=== PATIENT | male | born 1965 | race Caucasian/White ===

== ENCOUNTER → 2023-04-26 12:52 | Outpatient (BNVA) | payer MEDICAID, SELFPAY | PROVIDERS: PCP Registered Nurse; Referring Provider Registered Nurse; Visit Provider Orthopaedic Surgery | DX: M25.511 Pain in right shoulder (principal) | CPT/HCPCS: 73030 ==

== ENCOUNTER → 2023-06-01 10:43 | Outpatient (BNVA) | payer MEDICAID, SELFPAY | PROVIDERS: PCP Registered Nurse; Visit Provider Registered Nurse | DX: R55 Syncope and collapse (principal) | CPT/HCPCS: 80053; 82306; 83036; 85025 ==

== ENCOUNTER 2023-08-03 20:00 | Outpatient (CLI) | payer MEDICAID, SELFPAY | END 2023-08-03 20:01 | disposition home or self-care (01) | LOC: SLEEP 08-04 04:13 | PROVIDERS: PCP Registered Nurse; Visit Provider Registered Nurse | DX: G47.33 Obstructive sleep apnea (adult) (pediatric) (principal); F17.200 Nicotine dependence, unspecified, uncomplicated | CPT/HCPCS: 95810 ==

== ENCOUNTER → 2023-10-27 11:18 | Outpatient (BNVA) | payer MEDICAID, SELFPAY | PROVIDERS: PCP Registered Nurse; Visit Provider Registered Nurse | DX: R55 Syncope and collapse (principal) | CPT/HCPCS: 80053; 82306 ==

== ENCOUNTER → 2023-11-14 11:33 | Outpatient (BNVA) | payer MEDICAID, SELFPAY | PROVIDERS: PCP Registered Nurse; Referring Provider Registered Nurse; Visit Provider Specialist | DX: G56.02 Carpal tunnel syndrome, left upper limb (principal); R20.0 Anesthesia of skin; R20.2 Paresthesia of skin | CPT/HCPCS: 95910; 95911 ==

== ENCOUNTER → 2024-02-27 08:48 | Outpatient (BNVA) | payer MEDICAID, SELFPAY | PROVIDERS: PCP Registered Nurse; Visit Provider Physician Assistant | DX: G56.22 Lesion of ulnar nerve, left upper limb; G56.02 Carpal tunnel syndrome, left upper limb | CPT/HCPCS: 73110; 99214 ==

== ENCOUNTER 2024-02-27 10:02 | Outpatient (CLI) | payer MEDICAID, SELFPAY ==
--- NOTE | 2024-02-27 10:10 | XR_ITS ---
WS: [id number] Examination: XR lumbar spine 2-3V* [id number] Reason for Exam: M54.50 - Low back pain, unspecified Date: February 27, 2024 Comparison: None. Findings: The pedicles and the bone density are intact. There is convexity to the left with apex at L3-4 There is no anterior wedging or compression No significant subluxation is identified There is diffuse spondylosis with severe degenerative changes at L3-L4 the disc space is narrowed wit h prominent bridging osteophytes. Changes are similar but less prominent at L4-L5. Facet arthropathy is noted particularly in the mid and lower lumbar spine There is been a total left hip prosthesis placed Surgical clips in the right lower quadrant are noted. Impression: There our degenerative changes of the lumbar spine which are dominant at L3-4.
== END 2024-02-27 10:03 | disposition home or self-care (01) ==
PROVIDERS: PCP Registered Nurse; Visit Provider Registered Nurse
DX: M47.896 Other spondylosis, lumbar region (principal); M54.50 Low back pain, unspecified; G89.29 Other chronic pain
CPT/HCPCS: 72100

== ENCOUNTER 2024-04-03 11:10 | Day surgery (SDC) | payer MEDICAID, SELFPAY ==
[2024-04-03] VITALS (7 sets, daily range): BP systolic 119–146; BP diastolic 67–92; PULSE 53–75; RESP 18; TEMP 36.1–36.6; O2SAT 98–100; BMI 35.2
[2024-04-03] MEDS: ketorolac 30 mg/mL INJ IVP (11:36)
[2024-04-03] MEDS: acetaminophen 1,000 MG/100 ML PIGGYBACK 400 MG IV (11:36)
[2024-04-03] MEDS: scopolamine 1.5 Patch 1 PATCH TRANSDERMA (11:37)
[2024-04-03] MEDS: sodium chloride 0.9% 1,000 ML 30 ML IV (11:37)
--- NOTE | 2024-04-03 12:22 | ANES.PREANE2 ---
Pre-Anesthetic Assessment Height/Weight: Height 1.83 m Weight 117.934 kg Temp Pulse Resp BP Pulse Ox O2 Del Method 97 F L 53 L 18 126/69 98 Room Air 04/03/24 11:30 04/03/24 11:30 04/03/24 11:30 04/03/24 11:30 04/03/24 11:30 04/03/24 11:30 Operation Date: 04/03/24 12:50 Proposed Procedures p Carpal Tunnel Release(Left) - Chon Noah, DO s Cubital Tunnel Release(Left) - Chon [place], DO s Ulnar Nerve Transposition(Left) - Chon [place], DO Familial anesthetic complications: None Was Beta Rosa M taken within 24 hours: N/A Was Clonidine taken within 24 hours: N/A Last intake: Intake Last Liquid Date 04/02/24 Last Liquid Time 23:30 Last Solid Date 04/02/24 Last Solid Time 21:00 Social Tobacco and No alcohol Exam alert, oriented x 3, clear to auscultation bilaterally and regular rate & rhythm Airway Mallampati: Class III Dentition: full Pulmonary Sleep Apnea CV/HEM Hypertension Metabolic Morbid Obesity Anesthetic Plan ASA status: 3 Anesthesia: General Risk of > 500 ml blood loss (7ml/kg in children): No Medications/Allergies Home Medications Medication Instructions Recorded Confirmed Last Taken Type CPAP machine with supplies #1 ea 08/10/23 02/27/24 Unknown Rx ergocalciferol (vitamin D2) 1,250 1,250 mcg PO DAILY 90 days #12 caps 10/29/23 04/02/24 04/02/24 Rx mcg (50,000 unit) capsule losartan 25 mg tablet 25 mg PO DAILY 90 days #90 tabs 01/25/24 04/03/24 04/03/24 Rx albuterol sulfate 90 mcg/actuation 90 mcg inhalation DAILY 04/02/24 04/02/24 04/02/24 History aerosol inhaler (Ventolin HFA) diclofenac sodium 75 mg 75 mg PO DAILY 04/02/24 04/02/24 03/27/24 History tablet,delayed release loratadine 10 mg tablet 10 mg PO DAILY 04/02/24 04/03/24 04/03/24 History Allergies Allergy/AdvReac Type Severity Reaction Status Date / Time No Known Allergies Allergy Verified 04/02/24 13:53 Current Medications Generic Name Dose Route Start Last Admin Trade Name Nelida PRN Reason Stop Dose Admin Sodium Chloride 1,000 mls @ 30 mls/hr 04/03/24 11:30 04/03/24 11:37 Sodium Chloride 0.9% IV 04/04/24 11:29 30 mls/hr .Q24H DOLORES Administration PFSH Anesthesia Medical History Marijuana smoker Osteoarthritis Surgical History History of foot surgery right foot History of appendectomy History of left hip replacement Family History Mother CAD (coronary artery disease) Cancer breast Hypertension Lung disease tb Father CAD (coronary artery disease) Diabetes Clotting disorder Hypertension Stroke Grandmother Diabetes Denies family history of Chronic kidney disease (CKD) Social History Smoking and tobacco/nicotine status: current every day tobacco/nicotine user cigars Alcohol intake: never Substance/Drug Use: current Substance/Drug use frequency: daily Adopted: No Caregiver/support person: No Lives independently: No Household members: family service: No Current occupational status: disabled Sexually active: Yes Do you think of yourself as: Straight/Heterosexual Current gender identity: Male Data Anesthesia Cardiac Studies: No Data to Display
--- NOTE | 2024-04-03 12:34 | P.HP_ITS ---
Same Day Surgery H&P Indication for Procedure/HPI DATE OF PROCEDURE: April 03, 2024 CHIEF COMPLAINT/INDICATIONFOR SURGICAL PROCEDURE: Left carpal tunnel syndrome, left cubital tunnel syndrome PREOP DIAGNOSIS: Left carpal tunnel syndrome left cubital tunnel syndrome PLANNED PROCEDURE: Operation Date: 04/03/24 12:50 Proposed Procedures p Carpal Tunnel Release(Left) - Chon Noah, DO s Cubital Tunnel Release(Left) - Chon [place], DO s Ulnar Nerve Transposition(Left) - Chon Noah, Medications/Allergies* Home Medications Medication Instructions Recorded Confirmed Type albuterol sulfate 90 mcg/actuation 90 mcg inhalation DAILY 04/02/24 04/02/24 History aerosol inhaler (Ventolin HFA) diclofenac sodium 75 mg 75 mg PO DAILY 04/02/24 04/02/24 History tablet,delayed release loratadine 10 mg tablet 10 mg PO DAILY 04/02/24 04/03/24 History Allergies/Adverse Reactions Allergy/AdvReac Type Severity Reaction Status Date / Time No Known Allergies Allergy Verified 04/02/24 13:53 Current Medications: Generic Name Dose Route Start Last Admin Trade Name Freq PRN Reason Stop Dose Admin Sodium Chloride 1,000 mls @ 30 mls/hr 04/03/24 11:30 04/03/24 11:37 Sodium Chloride 0.9% IV 04/04/24 11:29 30 mls/hr .Q24H DOLORES Administration Pertinent History/Comorbid Conditions* Medical History (Updated 02/27/24 @ 09:40 by GODFREY Uriarte) Marijuana smoker Osteoarthritis Surgical History (Updated 04/07/23 @ 10:59 by THIAGO Fischer) History of foot surgery right foot History of appendectomy History of left hip replacement Family History (Updated 04/06/23 @ 13:30 by Linnea Elizabeth LPN) Diabetes Father Grandmother CAD (coronary artery disease) Mother Father Clotting disorder Father Lung disease Mother tb Cancer Mother breast Hypertension Mother Father Stroke Father Denies family history of Chronic kidney disease (CKD) Social History Smoking and tobacco/nicotine status: current every day tobacco/nicotine user cigars Alcohol intake: never Substance/Drug Use: current Substance/Drug use frequency: daily Adopted: No Caregiver/support person: No Lives independently: No Household members: family service: No Current occupational status: disabled Sexually active: Yes Do you think of yourself as: Straight/Heterosexual Current gender identity: Male Pertinent Exam Findings alert, oriented x 3, operative site marked and procedure specific exam findings Please refer to detailed orthopedic examination on 02/26/2025 for: Left upper extremity Hand exam-positive Tinel's and positive Phalen's test. He has some mild thenar atrophy and no thenar muscle weakness detected. Full range of motion in fingers and wrist and fingers are warm and well-perfused with normal cap refill under 2 seconds. Radial pulse 2+, no intrinsic muscle weakness noted. Elbow exam-positive Tinel's test and positive elbow flexion test. Recommendations Surgery/Procedure today Other Plans: Plan to proceed to the OR today with left carpal tunnel release and left cubital tunnel release with possible ulnar nerve transposition. We talked about the ins and outs procedure risk benefits complication alternatives of surgery through shared decision making patient elects proceed with surgical intervention all questions answered at this time. He understands risk of surgery include but not limited to make a better make it worse injury nerves vessels or tendons, wound issues, infection, possible incomplete paresthesia resolution. Coding Level of Care Code Acute Code for Miquel Fwchato
[2024-04-03] MEDS: ceFAZolin 2,000 MG in sodium chloride 0.9% (plus) 50 ML 100 MG IV (12:36)
[2024-04-03] MEDS: ROPivacaine 0.5% SDV 30 mL 150 MG INJECTION (12:59)
[2024-04-03] MEDS: lidocaine-epi 1% PF 1:200,000 30 mL SDV INJECTION (12:59)
--- NOTE | 2024-04-03 14:08 | PM.OP ---
Operative Report Date of procedure: April 03, 2024 Surgeon: Chon Zamora DO Language Instructor: Po Zamora PA-C: PA was necessary for assistance in this case with hand positioning to execute the procedure, retraction and protection of neurovascular structures as well as to assist with wound closure and dressing application. Procedure: Procedure: Preoperative diagnosis: Left carpal tunnel syndrome Left?cubital tunnel syndrome post-op diagnosis:? Left carpal tunnel syndrome and Left?cubital tunnel syndrome and subluxating ulnar nerve Post-op findings: See operative note Procedure done: Left carpal tunnel release Left?cubital tunnel release(ulnar nerve decompression) Left ulnar nerve?transposition?and neurolysis Surgeon: Chon Zamora DO Estimated blood loss: 15 cc Tourniquet Time: 51 minutes IV fluids: See anesthesia record Complications: None Findings: See operative report narrative Condition: stable Disposition: same day Brief History: Patient is a pleasant 59-year-old Male was seen evaluated in the outpatient setting for Left ulnar nerve neuropathy at the elbow and Left carpal tunnel syndrome. Patient had NCS findings consistent with this.? ?On my examination in the office patient findings are consistent with this preoperative diagnosis. We had detailed discussion in office about continued nonoperative intervention versus operative intervention.? Patient understands the risk benefits complications alternatives to surgical and nonsurgical treatment options.? Patient understands the risks include but not limited to make it better, make it worse, infection, permanent injury to nerve, decreased function and sensation to the hand with persistent weakness.? Given these risks patient understands and agrees to proceed with current plan.? Patient elects to proceed with a surgical mention. All questions answered. Procedure: Patient was seen and evaluated in the preoperative holding area.? The consent that was filled out in office was reviewed with patient. Correct extremity was then marked.? Patient was seen evaluated by the preoperative team as well as anesthesia department.? Once cleared for surgery patient was then taken to the operative suite and transported onto the operative table all bony prominences were well-padded and patient was secured to the table.? Left upper extremity was placed on an armboard.? Patient then underwent anesthesia per the anesthesia department. . Patient's Left upper extremity was then prepped and draped in standard orthopedic fashion.? This point a final timeout was performed. Patient received appropriate preop antibiotics. The Left upper extremity tourniquet was applied sterilely. Esmarch tourniquet was used to exsanguinate the operative extremity and was insufflated to 250 mmHg.? I started with the carpal tunnel release first.? I made a standard open carpal tunnel release starting with the distal most extent in the palm at the Braun's cardinal line and the incision line was made in line with the fourth ray and ended just distal to the wrist crease.? Sharp scalpel incision was made through skin and subcutaneous tissue I then utilizing self retainer then began to dissect with dissection scissors split longitudinally the palmar fascia.? Next I then utilizing my automobile mechanic assistant Romina retractors subsequently utilizing scalpel feathered through the palmaris brevis as well as through the transverse carpal ligament distally.? Once I encountered the floor of the transverse carpal ligament and entered into the carpal tunnel I then switched to dissection scissors.? Carefully released the distal extent of the transverse carpal ligament to the palmar fat.? Care was to protect the recurrent branch and not injured this during this part of the case.? Nasal speculum was placed approximately on top of the transverse carpal ligament for direct visualization of the transverse carpal ligament. Next I then placed a [place] underneath the transverse carpal ligament proximally to protect the nerve in the carpal tunnel contents.? And then I subsequently under loupe magnification utilize my dissection scissors to release the transverse carpal ligament into the antebrachial fascia under direct visualization with care to keep my scissors with a curved ulnarly away from the palmar cutaneous branch.? The transverse carpal was then completely decompressed proximally and a [place] was then placed both distally and proximally throughout the carpal tunnel and had complete decompression of the nerve.? The nerve did appear to have hourglass shape as it went through the carpal tunnel.? With significant irritation noted around the nerve.? No masses were noted within the contents of the carpal tunnel.? This completed the carpal tunnel release and then I subsequently irrigated the wound bed and placed a wet Ray-Gustavo into the incision for later closure. Standard curvilinear incision was made centering over the ulnar nerve between the medial epicondyle and olecranon process.? Sharp scalpel excision through skin and subcutaneous tissue was performed.? Once I encountered subcutaneous tissue I then utilized dissection scissors to spread in the path of the [facility] and care was made to protect any nerve branches throughout this case.? I then utilized a scalpel to complete my dissection directly on over to the flexor pronator mass and elevated this fat tissue directly off of the fascia.? I started my dissection of the ulnar nerve the nerve proximally.? Once identified I then utilized Littler dissection scissors and decompress the nerve completely and proximally and utilized blunt dissection to make sure there was no entrapment proximally..? Once decompressed proximally I then traced the nerve distal through Barbosa's ligament and as it entered the FCU fascia aponeurosis and completed by decompression and ulnar nerve neurolysis distally.? The nerve was completely released in situ no areas of entrapment I was able to place my finger distally and proximally with no areas entrapment along the nerve.? At this point in time by in situ release was completed I then subsequently took the elbow through range of motion and subluxation was noted over the medial epicondyle and plan for ulnar nerve?transposition?was made.? ?I thoroughly irrigated the nerve throughout the case to prevent it from drying out. Of note the ulnar nerve had significant irritation and inflammation.? Next while protecting the nerve as well as care to not injure any venous structures I then excised the intermuscular septum proximally with bipolar electrocautery.? This allowed for there to be no entrapment proximally with my?transposition.? Next I then performed my standard Z- flap into the fascia.? This created a large thick fascial band that would be sutured to secure the ulnar nerve when its been transposed.? Once the incision was made just through the fascia I then mobilized just the fascia and freed the muscle belly off of this.? I then sequentially excised the any prominent fascial bands throughout the flexor pronator mass. At this point I had only soft tissue and muscle belly with which the ulnar nerve could rest.? I had to do a small excision of the muscle belly distally to create a nice trough for the nerve to lie.? At this point I then mobilized the nerve and this was transposed into the flexor pronator insertion under the fasica flaps.? There was no evidence of kinking/tethering of the nerve.? this was significantly redundant and lax with no signs of tension or entrapment.? I then utilized a 3-0 Ethibond suture and approximated the fascia flaps that was created and the Left knee okay okay secured with horizontal interrupted mattress stitches.? I was able to place 2 fingers under the repair with no evidence of entrapment and the elbow was taken through range of motion and no areas of entrapment or kinking were noted on the nerve and the nerve was redundant relaxed in all ranges of motion.? This completed my ulnar nerve decompression of the?cubital tunnel as well as ulnar nerve?transposition.? Wound bed was then thoroughly irrigated.? Tourniquet was deflated.? Maintained exact hemostasis with bipolar electrocautery.? I did place a mirta drain to prevent hematoma formation. As result the skin was reapproximated with interrupted Vicryl subcutaneous suture 3-0.? I next utilized a running horizontal mattress stitch with 3-0 nylon.? Extremity was then cleaned and the incision was then covered with Xeroform 4 x 4's ABD Curlex and soft roll and a?cubital splint was then applied with an Delta wrap.? Patient was then awakened from anesthesia and taken to PACU in stable condition. Disposition: Patient taken to PACU in stable condition.? Patient given appropriate discharge instructions as well as pain medication.? We will get Patient in with OT hand therapy for splint takedown dressing change and drain pull. Patient will see me in office in 2 weeks.? pt understands? if they has any questions they can contact the office.
--- NOTE | 2024-04-03 14:19 | W.PM.BPON ---
Date of Procedure: [April 03, 2024] Surgeon: [Dr. Zamora DO] Stretching Press Operator(s): [Po Zamora PA-C] Procedure(s) performed: [Left carpal tunnel release left cubital tunnel release with Ulnar Nerve transposition] Findings of the procedure(s): [Left Carpal tunnel syndrome and left cubital tunnel syndrome. Once ulnar nerve was released and elbow, then took the elbow through range of motion and subluxation was noted over the medial epicondyle and plan for ulnar nerve?transposition?was made.] Estimated blood loss: [15 ml] Specimen(s) removed: [n/a] Post-operative diagnosis: [Left carpal tunnel syndrome and left cubital tunnel syndrome]
--- NOTE | 2024-04-03 14:24 | PM.PACU ---
PACU note Narrative: Patient is a 59-year-old male just underwent a left carpal tunnel release and left cubital tunnel release with ulnar nerve transposition. Patient transferred to PACU in stable condition. Pain is well controlled. Dressing and splint is on, dry and in place. Patient's fingers are warm and well-perfused. Patient can wiggle fingers. normal cap refill under 2 seconds. unable to assess elbow ROM due to splint. Unable to assess sensation due to residual localized anesthetic. Exam: awake Disposition: discharged
[2024-04-03] MEDS: HYDROcodone-acetaminophen 5-325 mg Tablet 1 TAB PO (15:08)
--- NOTE | 2024-04-03 15:25 | ANE.PACU2 ---
Inpatient post-anesthesia follow up: Airway intact: Yes Vital signs: Temperature 97.8 F Pulse Rate 56 Respiratory Rate 18 Blood Pressure 146/71 Pulse Oximetry 98 Oxygen Delivery Me thod Room Air Oxygen Flow Rate 6 Fraction of Inspir ed Oxygen Hydration adequate: Yes Nausea and vomiting: No Pain level: 1 Mental status: Baseline
== END 2024-04-03 15:27 | disposition home or self-care (01) ==
PROVIDERS: PCP Registered Nurse; Visit Provider Student in an Organized Health Care Education/Training Program
PROC: (CPT 64721; principal; 2024-04-03 12:40)
PROC: (CPT 64718; 2024-04-03 12:40)
PROC: (CPT 64718; 2024-04-03 12:40)
DX: G56.02 Carpal tunnel syndrome, left upper limb (principal); G56.22 Lesion of ulnar nerve, left upper limb; G47.30 Sleep apnea, unspecified; I10 Essential (primary) hypertension; E66.01 Morbid (severe) obesity due to excess calories; Z68.35 Body mass index [BMI] 35.0-35.9, adult; F17.200 Nicotine dependence, unspecified, uncomplicated
CPT/HCPCS: 64718; 64721; J0131; J0690; J1100; J1885; J2405; J2704; J2795; J3010; J3490; J7030

== ENCOUNTER 2024-04-05 08:42 | Outpatient (RCR) | payer MEDICAID, SELFPAY | END 2024-04-26 23:59 | disposition home or self-care (01) | LOC: SOT 08:42 | PROVIDERS: Visit Provider Student in an Organized Health Care Education/Training Program | DX: G56.02 Carpal tunnel syndrome, left upper limb (principal); G56.22 Lesion of ulnar nerve, left upper limb | CPT/HCPCS: 97530; 97760; L3763 ==

== ENCOUNTER → 2024-04-18 13:57 | Outpatient (BNVA) | payer MEDICAID, SELFPAY | PROVIDERS: Visit Provider Physician Assistant | DX: Z98.890 Other specified postprocedural states (principal) | CPT/HCPCS: 99024 ==

== ENCOUNTER → 2024-06-12 08:31 | Outpatient (BNVA) | payer MEDICAID, SELFPAY | PROVIDERS: Visit Provider Physician Assistant | DX: Z98.890 Other specified postprocedural states (principal) | CPT/HCPCS: 99024 ==

== ENCOUNTER → 2024-06-28 09:36 | Outpatient (BNVA) | payer MEDICAID, SELFPAY | PROVIDERS: PCP Registered Nurse; Visit Provider Registered Nurse | DX: Z13.1 Encounter for screening for diabetes mellitus (principal); I10 Essential (primary) hypertension; E55.9 Vitamin D deficiency, unspecified | CPT/HCPCS: 80053; 80061; 82306; 83036; 85025 ==

== ENCOUNTER → 2024-08-09 08:21 | Outpatient (BNVA) | payer MEDICAID, SELFPAY | PROVIDERS: PCP Registered Nurse; Visit Provider Student in an Organized Health Care Education/Training Program | DX: M25.551 Pain in right hip (principal) | CPT/HCPCS: 73502; 99213 ==

== ENCOUNTER → 2024-08-20 08:19 | Outpatient (BNVA) | payer MEDICAID, SELFPAY | PROVIDERS: PCP Registered Nurse; Visit Provider Orthopaedic Surgery | DX: M54.50 Low back pain, unspecified (principal); G89.29 Other chronic pain | CPT/HCPCS: 72110; 99203 ==

== ENCOUNTER 2024-08-27 06:30 | Outpatient (RCR) | payer MEDICAID, SELFPAY | END 2024-09-26 23:59 | disposition home or self-care (01) | LOC: WPT 06:30 | PROVIDERS: Visit Provider Orthopaedic Surgery | DX: M54.9 Dorsalgia, unspecified (principal); G89.29 Other chronic pain | CPT/HCPCS: 97110; 97161; 97530 ==

== ENCOUNTER 2024-09-27 06:00 | Outpatient (RCR) | payer MEDICAID, SELFPAY | END 2024-10-26 23:59 | disposition home or self-care (01) | LOC: WPT 06:00 | PROVIDERS: Visit Provider Orthopaedic Surgery | DX: M54.9 Dorsalgia, unspecified (principal); G89.29 Other chronic pain | CPT/HCPCS: 97110; 97530 ==

== ENCOUNTER → 2024-12-12 11:40 | Outpatient (BNVA) | payer MEDICAID, SELFPAY | PROVIDERS: PCP Registered Nurse; Referring Provider Registered Nurse; Visit Provider Student in an Organized Health Care Education/Training Program | DX: K40.90 Unilateral inguinal hernia, without obstruction or gangrene, not specified as recurrent (principal) | CPT/HCPCS: 99204 ==

== ENCOUNTER 2024-12-18 08:29 | Day surgery (SDC) | payer MEDICAID, SELFPAY ==
[2024-12-18] VITALS (14 sets, daily range): BP systolic 99–185; BP diastolic 56–87; PULSE 51–94; RESP 8–22; TEMP 36.1–36.8; O2SAT 97–100; BMI 34.8
[2024-12-18] MEDS: sodium chloride 0.9% 1,000 ML 30 ML IV (09:21)
--- NOTE | 2024-12-18 09:33 | ANES.PREANE2 ---
Pre-Anesthetic Assessment Height/Weight: Height 6 ft Weight 257 lb Temp Pulse Resp BP Pulse Ox O2 Del Method 97.6 F 54 L 16 135/63 99 Room Air 12/18/24 09:00 12/18/24 09:00 12/18/24 09:00 12/18/24 09:00 12/18/24 09:00 12/18/24 09:02 Preop Diagnosis: hernia Operation Date: 12/18/24 10:10 Proposed Procedures p Laparoscopic Inguinal Hernia Repair [id number], K40.90(Right) - Carlton Saxena MD Was Beta Rosa M taken within 24 hours: N/A Was Clonidine taken within 24 hours: N/A Last intake: Intake Last Liquid Date 12/17/24 Last Liquid Time 23:55 Last Solid Date 12/17/24 Last Solid Time 23:55 Social No alcohol and No tobacco Exam alert, oriented x 3, clear to auscultation bilaterally and regular rate & rhythm Airway Submandibular: within normal limits Cervical ROM: within normal limits Mallampati: Class II Dentition: full Comments: Comments: poor dentition, denies any loose Anesthetic Plan ASA status: 3 Anesthesia: General Other: No prior issues with anesthesia NPO since yesterday Smoker, marijuana and nicotine [place], on CPAP BMI 35 Denies any cardiac issues Labs reviewed Plan for general anesthesia Medications/Allergies Home Medications Medication Instructions Recorded Confirmed Last Taken Type CPAP machine with supplies #1 ea 08/10/23 12/12/24 Unknown Rx albuterol sulfate 90 mcg/actuation 90 mcg inhalation DAILY 04/02/24 12/17/24 04/02/24 History aerosol inhaler (Ventolin HFA) loratadine 10 mg tablet See Rx Instructions .Route 09/23/24 12/17/24 12/17/24 Rx .COMPLEX #90 tabs losartan 50 mg tablet 50 mg PO DAILY 90 days #90 tabs 12/06/24 12/17/24 12/17/24 Rx diclofenac sodium 75 mg See Rx Instructions .Route 12/17/24 12/17/24 Rx tablet,delayed release .COMPLEX #60 tabs Allergies Allergy/AdvReac Type Severity Reaction Status Date / Time No Known Allergies Allergy Verified 12/12/24 11:51 Current Medications Generic Name Dose Route Start Last Admin Trade Name Freq PRN Reason Stop Dose Admin Sodium Chloride 1,000 mls @ 30 mls/hr 12/18/24 08:45 12/18/24 09:21 Sodium Chloride 0.9% IV 12/19/24 08:44 30 mls/hr .Q24H DOLORES Administration PFSH Anesthesia Medical History Marijuana smoker Osteoarthritis Surgical History History of foot surgery right foot History of appendectomy History of left hip replacement Family History Mother CAD (coronary artery disease) Cancer breast Hypertension Lung disease tb Father CAD (coronary artery disease) Diabetes Clotting disorder Hypertension Stroke Grandmother Diabetes Denies family history of Chronic kidney disease (CKD) Social History Smoking and tobacco/nicotine status: never used tobacco/nicotine Alcohol intake: never Substance/Drug Use: current Substance/Drug use frequency: daily Adopted: No Caregiver/support person: No Lives independently: No Household members: family service: No Current occupational status: disabled Sexually active: Yes Do you think of yourself as: Straight/Heterosexual Current gender identity: Male Data Anesthesia Cardiac Studies: No Data to Display
--- NOTE | 2024-12-18 10:17 | W.PM.OPSUD ---
Surgery/Procedure H&P Update DATE OF PROCEDURE: December 18, 2024 DATE H&P PERFORMED: 12/12/24 H&P UPDATE INFORMATION: I have reviewed H&P completed within last 30 days, I have examined patient prior to procedure and No changes to prior documentation CHANGES TO PREVIOUS DOCUMENTATION: Consented patient for laparoscopic right inguinal hernia repair, possible open. PREOP DIAGNOSIS: hernia PLANNED PROCEDURE: Operation Date: 12/18/24 10:10 Proposed Procedures p Laparoscopic Inguinal Hernia Repair [id number], K40.90(Right) - Carlton Saxena MD
[2024-12-18] MEDS: ceFAZolin 2,000 mg SDV 2000 MG IVP (10:47)
--- NOTE | 2024-12-18 12:42 | P.OP_ITS ---
Operative Report Date of procedure: December 18, 2024 Pre-op diagnosis: Right inguinal hernia Post-op diagnosis: same Post-op findings: Right inguinal hernia (direct). Hernia sac and cord lipoma reduced into abdomen. Procedure done: Laparoscopic right inguinal hernia repair (TEP). X-large mesh used. Implants: BARD 3D Max Mesh X-large Specimens removed/disposition: NA Pathology: none sent Surgeon: Carlton Saxena MD Tubing Mill Operator: Dr. Myles Anesthesia: General Estimated blood loss (mL): 10 Complications: NA Findings: Direct right inguinal hernia. Cord lipoma. Hernia sac and cord lipoma reduced. Condition: stable Disposition: same day Brief History: 59-year-old male who presented with a symptomatic right inguinal hernia. After discussing risks and benefits patient agreed to proceed to a laparoscopic right inguinal hernia pair possible open. Procedure: Patient was wheeled into the operative room and placed on the OR table in a supine position. Abdomen was inspected prepped and draped in usual sterile fashion. Time-out was performed and all present were in agreement. A 15 blade scalpel was used to make 1.2 centimeter incision infraumbilically. Combination of sharp and blunt dissection was performed down to the anterior rectus sheath which was opened sharply. The dissecting balloon was then inserted into the space of Retzius and blown up. We put the camera into the port and identified that we were in the correct space. I then placed 2 5 millimeter trocars suprapubically in the midline. I then used endokitners to bluntly dissect in the space of Retzius out laterally. Right inguinal hernia was identified on the right. Blunt dissection was performed to dissect down the hernia sac until the vas deferens dove medially. A large right inguinal mesh was then placed into the space of Retzius. The mesh was unrolled and tacked once medially at the pubic bone. The mesh laid out nicely over the spermatic cord. I watched the hernia sac remained in place as insufflation was removed. Incisions were closed with 4-0 Monocryl in a subcuticular interrupted fashion. Skin glue was applied. Patient tolerated the procedure well.
[2024-12-18] MEDS: fentaNYL 50 mcg/mL INJ 2mL IVP (13:33)
--- NOTE | 2024-12-18 15:05 | ANE.PACU2 ---
Inpatient post-anesthesia follow up: Airway intact: Yes Vital signs: Temperature 98.2 F Pulse Rate 58 Respiratory Rate 16 Blood Pressure 120/63 Pulse Oximetry 97 Oxygen Delivery Me thod Room Air Oxygen Flow Rate Fraction of Inspir ed Oxygen Hydration adequate: Yes Nausea and vomiting: No Pain level: 1 Mental status: Baseline
== END 2024-12-18 15:05 | disposition home or self-care (01) ==
PROVIDERS: PCP Registered Nurse; Visit Provider Student in an Organized Health Care Education/Training Program
PROC: (CPT 49650; principal; 2024-12-18 10:00)
DX: K40.90 Unilateral inguinal hernia, without obstruction or gangrene, not specified as recurrent (principal); D17.6 Benign lipomatous neoplasm of spermatic cord; G47.33 Obstructive sleep apnea (adult) (pediatric); Z99.89 Dependence on other enabling machines and devices; M19.90 Unspecified osteoarthritis, unspecified site
CPT/HCPCS: 49650; 51702; C1781; J0131; J0690; J1100; J2405; J2704; J2710; J3010; J3490; J7030

== ENCOUNTER → 2025-01-06 08:04 | Outpatient (BNVA) | payer MEDICAID, SELFPAY | PROVIDERS: PCP Registered Nurse; Visit Provider Student in an Organized Health Care Education/Training Program | DX: R03.0 Elevated blood-pressure reading, without diagnosis of hypertension (principal) | CPT/HCPCS: 99204 ==

== ENCOUNTER → 2025-03-12 10:05 | Outpatient (BNVA) | payer MEDICAID, SELFPAY | PROVIDERS: PCP Registered Nurse; Visit Provider Registered Nurse | DX: I10 Essential (primary) hypertension (principal); E55.9 Vitamin D deficiency, unspecified | CPT/HCPCS: 80053; 82306; 85025 ==

== ENCOUNTER → 2025-11-17 07:07 | Outpatient (BNVA) | payer MEDICAID, SELFPAY | PROVIDERS: PCP Registered Nurse; Visit Provider Registered Nurse | DX: R31.0 Gross hematuria (principal); R31.9 Hematuria, unspecified; R97.20 Elevated prostate specific antigen [PSA]; N39.0 Urinary tract infection, site not specified | CPT/HCPCS: 81000; 81003; 84153; 85025; 87086; 88112 ==